=== PATIENT | female | born 1990 | race African-American/Black ===

== ENCOUNTER 2017-03-01 00:12 | Inpatient (IN) | payer OTHER ==
[~2017-03-01] VITALS: Ht 167.6 cm; Wt 108.9 kg
[2017-03-02] MEDS ORDERED: Oxytocin 10 Unit/mL Inj IM PRN (09:10)
[2017-03-02] MEDS ORDERED: Carboprost 250 mCg/mL Inj IM PRN (09:10)
[2017-03-02] MEDS ORDERED: Sodium Chloride LOK Flush 10 mL Syringe IVFLUSH PRN (09:10)
[2017-03-02] MEDS ORDERED: Hemorrhage Kit, Post Partum XX ONE (09:10)
[2017-03-02] MEDS ORDERED: Methylergonovine 0.2 mg/mL Inj IM PRN (09:10)
[2017-03-02] MEDS ORDERED: Oxytocin 30 Units/500 mL LR 30 UNITS in IV Premix 1 EACH IV PRN ×2 (09:10→15:40)
[2017-03-02 09:16] LABS: Mean Corpuscular Hemoglobin 30.1 pg (27.0-35.0); Mean Corpuscular Volume 92.3 fL (81-100)
[2017-03-02] MEDS: Lactated Ringer's 1,000 ML IV PRN ×2 (10:47→22:57)
--- NOTE | 2017-03-02 11:16 | PCM.HPOB ---
Subjective Date of Service: Mar 02, 2017 Referring Provider: Admitting Physician: Nini Posada MD Primary Care Physician: Nini Posada MD Attending Physician: Nini Posada MD Chief Complaint 40 week gestation History of Present History of Present Illness This is a 26-year-old at 40 weeks 0 days with an ALBAN of 02/23/17 by known LMP of 05/19/16 presenting for scheduled induction as a TOLAC. She is a history in her previous of PIH and to sustain delivery secondary to failed induction. She carries a history of asthma. She presents to the family members are in is at 1-2 cm dilation, 50% effacement and -1. This was thus far been uncomplicated. She is GBS negative OB History: (2), Para (1), Term (1), Pre-term (0), ( 0), Living (1) Obstetrical Complications: None (previous history of induced hypertension) Past Medical History Obstetrical History: one delivery after induction secondary to -induced hypertension Gynecologic History: None Medical History: Asthma Hx Tobacco Use: No Smoking Status: Never Smoker Hx Alcohol Use: No Hx Substance Use: No Past Family History Living Arrangement: with Family Genetic Screening/Counseling Genetic Screening/Counseling: Unknown Review of Systems Constitutional: Y: Fever Eyes: Denies: Blurred Vision Cardiovascular: Denies: Chest Pain, Edema, SOB while laying flat Respiratory: Denies: SOB with Exertion Gastrointestinal: Denies: Epigastric pain, Nausea, Vomiting Psychologic: Denies: Agitation, Depression Allergy Coded Allergies: latex (Verified Allergy, Unknown, SWELLING,ITCHING, 03/02/17) Exam Vital Signs BP 131/76 Pulse 82 Respirations 18 Temp 36.1 Exam heart rate baseline 130 Category 1 tracing with moderate variability Constitutional: Well-developed, Well-nourished HEENT: Atraumatic Lungs: Clear to Auscultation Heart: Regular Rate/Rhythm, Normal S1, Normal S2 Fundus Firm Abdomen: Gravid Extremities: Warm, Tenderness/Swelling Noted Neurological/Psychiatric: Alert, Oriented X3, Cooperative Neuro: Reflexes 2+, Normal DTRs, No Clonus noted Labs/Diagnostics Labs Laboratory Tests 72 Hours Test 03/02/17 08:50 03/02/17 10:54 White Blood Count 10.4th/mm3 (3.8-10.1) Red Blood Count 3.66mil/mm3 (3.90-5.20) Hemoglobin 11.0g/dL (12.0-15.6) Hematocrit 33.8% (35.0-46.0) Mean Corpuscular Volume 92.3fL (81-100) Mean Corpuscular Hemoglobin 30.1pg (27.0-35.0) Mean Corpuscular Hemoglobin Concent 32.5% (32.0-37.0) Red Cell Distribution Width 14.3% (12.3-15.4) Platelet Count 165bil/L (150-400) Hold Urine Received (Received) OB Intrapartum Assessment/Plan Problems: (1) 40 weeks gestation of Status: Acute ICD Code: Z3A.40 (2) Failed trial of labor following previous , antepartum Plan: Plan induction Balloon catheter insertion Pitocin will be started on advancing Routine antepartum care Status: Acute ICD Code: O66.41 Attending Statement 26 yo P1, previous c/section for failed to progress at 9cm. Strongly desire for ToLAC. Cerivx not favorable . Will do cervical ripening and consider pitocin induction afterwards. Emi Etienne DO Mar 02, 2017 11:15 Nini Posada MD Mar 04, 2017 14:51
[2017-03-02] MEDS ORDERED: fentaNYL-PF 50 mCg/mL 2 mL Inj ONE (21:11)
[2017-03-02] MEDS: Lactated Ringer's 1,000 ML IV SCH (23:26)
[2017-03-02] MEDS ORDERED: Lactated Ringer's 500 ML IV ONE (23:26)
--- NOTE | 2017-03-02 23:27 | PCM.HPANE ---
Patient Data Surgeon Admitting Provider:Nini Posada MD Attending Provider:Nini Posada MD Primary Care Physician:Nini Posada MD Other Provider:[facility] Reason for Visit Induction INDUCTION Ht/WT & BMI Body Mass Index Allergies Coded Allergies: latex (Verified Allergy, Unknown, SWELLING,ITCHING, 03/02/17) Past Anesthesia History Anesthesia History: Denies:: Abnormal Airway, Anesthesia Reactions Diabetes History Hx Diabetes?: No MRSA MRSA: No Medications Hypertension Medication: No Home Meds Incl Beta Lashawn: No History History of ENT Problems?: No HEENT History: Denies:: Abnormal Airway Denture Type: None Teeth Condition: Within Normal Limits Hx of Heart Problems?: No Cardiovascular History: Denies:: Hypertension Hx of Respiratory Problem?: No Respiratory History: Denies:: Asthma Hx Neurologic Problems?: No Hx of GI Problems?: No Hx of Problems?: No Female Hx: Positive for:: Currently Hx Musculoskeletal Problems?: No Hx Surgeries?: Yes Hx Any Other Health Problems?: No Hx Alcohol Use: NoHx Substance Use: No Smoking Status: Never Smoker Stop/Bang Risk Assessment Category Category 1A: Patient has history of documented sleep apnea, and HAS NOT received any narcotic, sedative or anesthesia administration during this stay. Category 1B: Patient has history of documented sleep apnea, and HAS received any narcotic , sedative or anesthesia administration during this stay Category 2: Patient has SUSPECTED Obstructive Sleep Apnea, and HAS received any narcotic , sedative or anesthesia administration during this stay. Category 3: Patient has SUSPECTED Obstructive Sleep Apnea and HAS NOT received narcotic, sedative or anesthesia administration during this stay. Category 4: Outpatient in Procedural Areas with known sleep apnea or who screen positive for High Risk via the STOP/BANG questionnaire. Exam Exam General Appearance: Alert, Oriented X3, Cooperative HEENT/AIRWAY: MP 1 Lungs: Clear to Auscultation Heart: Regular Rate/Rhythm, Normal S1, Normal S2 Meds/Labs/Diagnostics Admission Meds Current Medications Fentanyl Citrate (Sublimaze Inj) 100 mcg STK-MED ONCE .ROUTE Last administered on 03/02/17t 21:21; Start 03/02/17 at 21:11; Stop 03/02/17 at 21:13; Status DC Labs Test 03/02/17 08:50 03/02/17 10:54 White Blood Count 10.4th/mm3 (3.8-10.1) Red Blood Count 3.66mil/mm3 (3.90-5.20) Hemoglobin 11.0g/dL (12.0-15.6) Hematocrit 33.8% (35.0-46.0) Mean Corpuscular Volume 92.3fL (81-100) Mean Corpuscular Hemoglobin 30.1pg (27.0-35.0) Mean Corpuscular Hemoglobin Concent 32.5% (32.0-37.0) Red Cell Distribution Width 14.3% (12.3-15.4) Platelet Count 165bil/L (150-400) Hold Urine Received (Received) Plan Impression Patient chart reviewed, patient interviewed and anesthestic plan with risks, benefits, and alternatives discussed, and informed consent obtained. NPO per Anesth. Guidelines: Yes ASA Physical Status: ASA2 Mod Systemic Disease Anesthetic Plan: Epidural Bene/Risks/Altern/Consents: Yes HP Complete Prior to Induction: Yes Harinder Coto MD Mar 02, 2017 23:27
[2017-03-02] MEDS ORDERED: Atropine 1 mg/10 mL (Code) Syringe IVPUSH PRN (23:30)
[2017-03-02] MEDS ORDERED: Ondansetron 2 mg/mL 2 mL Inj IVPUSH PRN (23:30)
[2017-03-02] MEDS ORDERED: EPHEDrine Sulfate 50 mg/mL Inj IVPUSH PRN (23:30)
[2017-03-02] MEDS ORDERED: fentaNYL 2 mCg/mL-Bupiv 0.125% 100 ML EPIDURAL SCH (23:30)
--- NOTE | 2017-03-03 02:54 | PROG NOTE ---
[address] [address] PROGRESS NOTE PATIENT: PILAR BARTHOLOMEW : 1990 MR#: [id number] ADMIT: 03/02/2017 JOB ID: [id number] DATE: 03/02/2017 A 26-year-old female, 2, para 1, at 41 weeks , previous section, desiring TOLAC. She came in this morning for scheduled induction. Cervical ripening balloon was placed in the morning and replaced at 3 p.m. At that time, before the balloon was placed, her cervix was 1-2 cm dilated, 50% effaced, and -3 station. After the balloon was removed, the cervix was 4 cm dilated and 70% effaced, and very soft. At that time, Pitocin started. The patient was examined at 7:30 p.m. and at 9 p.m. by a nurse and at that time was noted she was both 7 cm dilated, 80% effaced, and -2 station. I examined patient at 9:00. According to my examination, she has about 6 cm dilated, 80% effaced, -2 station. At that time, IUPC and FSE was placed. During my care with the patient, the patient had desired labor without pain medication or epidural. So before 9:00 there was no pain medication given. Patient did not request for any pain management. At nine o'clock, the patient is requesting IV medication for the pain. 100 mg of fentanyl was given at that time. From admission until 9:00, the patient's heart tracing was reassuring. She had occasionally early deceleration but no concerning variable decels or late decels. When the IUPC was placed at 9:00, her contraction was not adequate. It was about 120-150 Pelham per 10 minutes. The plan, at that time, was continue with Pitocin induction. Observe for labor progress. I examined the patient again at the 11 o'clock. Her cervix was 8 cm dilated, slightly swollen the station is still -2. The position of the fetus was in ROP position. There is no significant caput. Before I presented to examine the patient, two variable decelerations were noticed. At that time, it was realized she only got 1 L of fluid during her whole labor since morning. It is related to the patient's request to have as little as possible of IV fluid. At this time, dehydration may related to her deceleration so a bolus of IV fluid was given. Position change and oxygen was given. Her heart tracing improved with baseline at 150 with moderate variability, and only noticed early deceleration. At this time, patient request to get epidural for pain management. Based on the patient's station at this time, no signs of rupture of uterus and she still having progress of dilation and her heart tracing is reassuring after IV bolus. I will allow labor to progress at this time, and she can get epidural for pain management. I discussed with patient and family that, at this time, we will let labor progress but there is still possibility of section if labor does not progress well. Patient and family understood.
[2017-03-03] MEDS: Lactated Ringer's 1,000 ML IV SCH ×6 (03:24→23:26)
[2017-03-03] MEDS ORDERED: Witch Hazel-Glycerin Pads TOPICAL PRN (03:25)
[2017-03-03] MEDS ORDERED: Methylergonovine 0.2 mg/mL Inj IM PRN (03:25)
[2017-03-03] MEDS ORDERED: Hemorrhage Kit, Post Partum XX ONE (03:25)
[2017-03-03] MEDS ORDERED: Benzocaine (Dermoplast) 20% 60 Gm Spray TOPICAL PRN (03:25)
[2017-03-03] MEDS ORDERED: Oxytocin 10 Unit/mL Inj IM PRN (03:25)
[2017-03-03] MEDS ORDERED: Carboprost 250 mCg/mL Inj IM PRN (03:25)
[2017-03-03] MEDS ORDERED: LANOlin HPA 7 Gm Ointment TOPICAL PRN (03:25)
--- NOTE | 2017-03-03 08:14 | OP ---
[address] [address] OPERATIVE REPORT PATIENT: PILAR BARTHOLOMEW : 1990 MR#: [id number] ADMIT: 03/02/2017 JOB ID: [id number] . DATE OF SURGERY: 03/03/2017 SURGEON: Nini Posada MD PREOPERATIVE DIAGNOSIS(ES): POSTOPERATIVE DIAGNOSIS(ES): INDICATIONS FOR SURGERY: This is a 26-year-old female, 2, para 2, status post status post . She presented to [facility] for scheduled induction of labor. PROCEDURE DESCRIPTION: Cervical ripening with double balloon was placed for cervical ripening. Pitocin started at about 5 o'clock this evening with Pitocin, and the patient started having dilation of her cervix. With Pitocin induction, there is periodic category 2 tracing and the Pitocin had to be stopped multiple times, but with stopping Pitocin, oxygen changing position, heart tracing always recovered to a category one. The patient was noticed to be fully dilated and she was instructed to push. She has good effort to push. With pushing, there is a constant descent of head. Between pushes, her heart rate still in normal range. The was delivered at RADHA position with one nuchal cord. This nuchal cord was not released because of the delivery of anterior shoulder. The posterior shoulder delivered without difficulty. The chest delivered without difficulty. At this time, the nuchal cord was reduced. The infant was placed on mother's chest. There was spontaneous crying and a good tone. Delayed clamping of cord performed one minute after delivery. Regular cord blood collected. Placenta delivered spontaneously completely, examined with three-vessel cord. The uterus was massaged after the placenta delivered, Pitocin started. The perineum examined noticed to have a 2nd degree laceration. During the repair of the 2nd degree laceration, there was a thick gush of blood noticed. Bimanual massage of the uterus was done and felt the uterine body was well contracted. Lower segment was soft. At this time, 800 mcg of Cytotec placed per rectal. The bleeding stopped. The second-degree laceration was repaired by 2-0 Vicryl continuously. Hemostasis confirmed after the repair. The patient tolerated the procedure well. All instrument, needles, laps and gauzes counted correct twice. The EBL during the delivery was about 300 cc. The score of the infant was 8 and 9. Weight was not available at dictation.
[2017-03-04] MEDS: Lactated Ringer's 1,000 ML IV SCH (03:24)
[2017-03-04 07:02] LABS: Mean Corpuscular Hemoglobin 29.3 pg (27.0-35.0)
--- NOTE | 2017-03-04 09:22 | PCM.DIOB ---
Obstetrical Disch Instruction Dates of Hospitalization Date of Hospital Admission Mar 02, 2017 at 07:30 Providers Admitting Physician: Nini Posada MD Primary Care Physician: Nini Posada MD Attending Physician: Nini Posada MD Discharge Diagnosis Discharge Diagnosis PPD1 Problems: (1) 40 weeks gestation of Status: Acute ICD Code: Z3A.40 (2) , delivered Status: Acute ICD Code: O34.219 Diet Discharge Diet: No restrictions Activity Discharge Activity-General: Pelvic Rest for 6 weeks, Try not to overdue, Be up and about, Balance rest and activity, No lifting >15 pounds for 2 weeks Dressing and Incisional Care Hygiene: May shower, NO bathtub, hot tub or whirlpool Additional Instructions Discharge Instructions Please call office or go to ER if heavy vaginal bleeding, severe abdominal pain , foul smelling discharge, fever more than 100.4 or short of breath. Please follow up in office in 3-4 weeks after delivery, since you are moving after that. Follow Up Plan Follow Up Plan 3-4 weeks after delivery due to planned moving in march Follow-up Provider (F9): Nini Posada MD Follow-up appointment: Weeks (3-4) Call your provider for: Fever or Chills, Shortness of breath, Heavy vaginal bleeding, Excessive constipation, Vaginal discomfort, Red painful breasts Nini Posada MD Mar 04, 2017 09:22
[2017-03-04] MEDS ORDERED: DOCU-41 PO (09:23)
[2017-03-04] MEDS ORDERED: IBUP800T28 PO (09:23)
[2017-03-04 10:06] VITALS: BP 128/71; PULSE 77; RESP 18
--- NOTE | 2017-03-04 11:55 | DIS ---
[address] [address] DISCHARGE SUMMARY PATIENT: PILAR BARTHOLOMEW : 1990 MR#: [id number] ADMIT: 03/02/2017 JOB ID: [id number] DIS: DATE: 03/04/2017 SUBJECTIVE: This is a 26-year-old female, 2, para 2 now, status post . This is day 1. The delivery was not complicated. Patient doing well in the process. Her pain is well controlled. Her lochia was moderate to minimal. She was able to void, ambulate, and tolerated her diet. PHYSICAL EXAMINATION: She is afebrile. Cardiac RR, no murmur. Pulmonary bilaterally clear. Abdomen is soft, nontender. Uterus is well contracted. Extremities nontender. Lochia moderate to minimal. ASSESSMENT: A 26-year-old female, 2, para 2 status post vaginal after doing well. PLAN: 1. Discharge her home today. 2. Instruction given that if there is heavy vaginal bleeding, severe abdominal pain, foul-smelling discharge, fever more than 100.4, or short of breath, she needs to call the office or the ED for evaluation. 3. The patient planned to moved due to her 's duty change. 4. Instructed her to make appointment 3-4 weeks after delivery for the follow up. 5. Motrin 800 mg 30 pills prescribed with no refills.
== END 2017-03-04 11:50 | disposition home or self-care (01) | DRG 775 ==
LOC: FBC 03-02 07:30
PROVIDERS: ADMIT Obstetrics & Gynecology; ATTEND Obstetrics & Gynecology
PROC: 3E033VJ Introduction of Other Hormone into Peripheral Vein, Percutaneous Approach (ICD-10-PCS; 2017-03-02)
PROC: 10E0XZZ Delivery of Products of Conception, External Approach (ICD-10-PCS; principal; 2017-03-03)
PROC: 0KQM0ZZ Repair Perineum Muscle, Open Approach (ICD-10-PCS; 2017-03-03)
PROC: 10H07YZ Insertion of Other Device into Products of Conception, Via Natural or Artificial Opening (ICD-10-PCS; 2017-03-03)
DX: O48.0 Post-term pregnancy (principal); O34.211 Maternal care for low transverse scar from previous cesarean delivery; O76 Abnormality in fetal heart rate and rhythm complicating labor and delivery; O70.1 Second degree perineal laceration during delivery; O69.81X0 Labor and delivery complicated by cord around neck, without compression, not applicable or unspecified; Z3A.41 41 weeks gestation of pregnancy; Z37.0 Single live birth